=== PATIENT | male | born 1960 | race American Indian/Alaskan Native ===

== ENCOUNTER 2018-10-14 13:05 | Inpatient (IN) | payer MEDICARE, OTHER ==
--- NOTE | 2018-10-14 13:46 | C.PDOC ---
History Of Present Illness 57 year old male with PMHx of depression and anxiety presents to the ED requesting detoxification from alcohol. Reports his last alcoholic drink was yesterday. States he was recently at [facility] and at [facility] for same presentation but reports they do not have a detox program. Denies any nausea, vomiting, abd pain, chest pain, sob, fever, chills, cough, urinary symptoms, SI/HI, auditory or visual hallucinations. Time Seen by Provider: 10/14/18 13:28 Chief Complaint (Nursing): Substance Abuse History Per: Patient History/Exam Limitations: no limitations Onset/Duration Of Symptoms: Days Current Symptoms Are (Timing): Still Present Suicide/Self Injury Attempted (Context): None Modifying Factor(s): Alcohol Associated Symptoms: denies: Suicidal Thoughts, Suicidal Plan Past Medical History Reviewed: Historical Data, Nursing Documentation, Vital Signs Vital Signs: Last Vital Signs Temp 98.6 F 10/14/18 13:12 Pulse 105 H 10/14/18 13:12 Resp 20 10/14/18 13:12 BP 136/81 10/14/18 13:12 Pulse Ox 96 10/14/18 13:12 - Medical History PMH: Anxiety, Asthma, Bipolar Disorder, HTN Surgical History: No Surg Hx Family History: States: No Known Family Hx - Social History Hx Alcohol Use: Yes Hx Substance Use: No - Immunization History Hx Tetanus Toxoid Vaccination: Yes Hx Influenza Vaccination: Yes Hx Pneumococcal Vaccination: Yes Review Of Systems Except As Marked, All Systems Reviewed And Found Negative. Constitutional: Negative for: Fever, Chills Cardiovascular: Negative for: Chest Pain Respiratory: Negative for: Shortness of Breath Gastrointestinal: Negative for: Nausea, Vomiting, Abdominal Pain, Diarrhea Genitourinary: Negative for: Dysuria, Hematuria Psych: Negative for: Suicidal ideation Physical Exam - Physical Exam Appears: Non-toxic, No Acute Distress Skin: Warm, Dry Head: Atraumatic, Normacephalic Eye(s): bilateral: PERRL, EOMI Oral Mucosa: Moist Neck: Supple Chest: Symmetrical Cardiovascular: Rhythm Regular Respiratory: No Rales, No Rhonchi, No Wheezing, Other (Good air movement, Lungs CTA bilaterally) Gastrointestinal/Abdominal: Soft, No Tenderness, No Guarding, No Rebound Extremity: Bilateral: Atraumatic, Normal Color And Temperature, Normal ROM Pulses: Left Dorsalis Pedis: Normal, Right Dorsalis Pedis: Normal Neurological/Psych: Oriented x3, Normal Speech Gait: Steady ED Course And Treatment - Laboratory Results Result Diagrams: 10/14/18 14:57 10/14/18 14:57 O2 Sat by Pulse Oximetry: 96 (RA) Pulse Ox Interpretation: Normal Medical Decision Making Medical Decision Making: Impression: 57 year old male with PMHx of depression and anxiety presents to the ED requesting detoxification from alcohol. Initial Plan: Labs ordered with drug screen and UA Patient medically cleared. 16:[address] Cruz accepts patient full admission to [facility] for alcohol abuse. Disposition - Disposition Disposition: HOSPITALIZED Disposition Time: 16:25 Condition: STABLE - Clinical Impression Clinical Impression: Alcohol abuse - Scribe Statement The provider has reviewed the documentation as recorded by the Scribe Malia Pierre All medical record entries made by the Scribe were at my direction and personally dictated by me. I have reviewed the chart and agree that the record accurately reflects my personal performance of the history, physical exam, medical decision making, and the department course for this patient. I have also personally directed, reviewed, and agree with the discharge instructions and disposition.
[2018-10-14 15:10] LABS: BASO % 0.6 % (0.0-2.0); EOS # 0.1 K/uL (0.0-0.7); EOS % 2.5 % (0.0-4.0); HEMOGLOBIN 12.6 g/dL (12.0-18.0); LYMPH # 1.7 K/uL (1.0-4.3); LYMPH % 38.4 % (20.0-40.0); MEAN CELL VOLUME 92.6 fL (80.0-94.0); MEAN CORPUSCULAR HGB CONC 33.5 g/dL (33.0-37.0); MEAN PLATELET VOLUME 9.9 fL (7.2-11.7); MONO # 0.8 K/uL (0.0-0.8); MONO % 17.4 % (0.0-10.0); NEUT # 1.8 K/uL (1.8-7.0); NEUT % 41.1 % (50.0-75.0); RBC 4.05 Mil/uL (4.40-5.90); RED CELL DISTRIBUTION WIDTH 17.9 % (11.5-14.5); WHITE BLOOD COUNT 4.4 K/uL (4.8-10.8)
[2018-10-14 15:13] LABS: URINE BILIRUBIN NEGATIVE (NEGATIVE); URINE BLOOD NEGATIVE (NEGATIVE); URINE CLARITY Clear (Clear); URINE COLOR Yellow (YELLOW); URINE GLUCOSE (UA) NORMAL (Normal); URINE LEUKOCYTE ESTERASE NEG Leu/uL (Negative); URINE PROTEIN NEGATIVE (NEGATIVE); URINE UROBILINOGEN NORMAL mg/dL (0.2-1.0)
[2018-10-14 15:22] LABS: ALB/GLOB RATIO 1.2 (1.0-2.1); ALBUMIN 4.2 g/dL (3.5-5.0); ALT/SGPT 26 U/L (21-72); AST/SGOT 29 U/L (17-59); BLOOD UREA NITROGEN 14 mg/dL (9-20); CALCIUM 9.6 mg/dl (8.6-10.4); GFR NON-AFRICAN AMERICAN > 60
[2018-10-14 15:26] LABS: BARBITURATES, UR NEGATIVE (NEGATIVE); OPIATES, UR NEGATIVE (NEGATIVE); PHENCYCLIDINE, UR NEGATIVE (NEGATIVE)
[2018-10-14 15:29] LABS: BENZODIAZEPINES, UR POSITIVE (NEGATIVE)
--- NOTE | 2018-10-14 16:42 | PCM.BM ---
<Cynthia Flores - Last Filed: 10/14/18 16:41> Treatment Plan Problems - Problems identified on initial assessmt Anxiety Related to Substance Use Date Initiated: 10/14/18 Time Initiated: 16:41 Assessment reference: NA Status: Active Defensive Coping Date Initiated: 10/14/18 Time Initiated: 16:42 Assessment reference: NA Status: Active Knowledge Deficit : Alcohol Use Date Initiated: 10/14/18 Time Initiated: 16:42 Assessment reference: NA Status: Active Treatment assets and liabiliti Patient Assests: ADL independent, negotiates basic needs, cognitively intact Patient Liabilities: substance abuse - Milieu Protocol Maintain good personal hygiene: daily Encourage regular showers, daily Remind patient to perform daily oral care, daily Assist patient to perform ADL's Conduct patient checks and document Observation sheet: Q15 minutes Maintain personal safety: every shift Educate patient to report safety concerns to staff, every shift Monitor environment for contraband/sharps Medication safety: Monitor for expected outcome, potential side effects: every shift, Assess barriers to learning: every shift, Assess readiness for medication education: every shift <Rolando Torres - Last Filed: 10/15/18 12:54> - Diagnosis (1) Alcohol abuse Status: Acute Interventions: 10/15/18 12:54 * Assess 7x/week regarding severity of withdrawal * Educate regarding risks, benefits, side effects and alternatives of medications * Use Motivational Interviewing for abstinence * Use CBT for relapse prevention * Medication management for withdrawal symptoms * Encourage medication assisted treatment *
[2018-10-15] MEDS ORDERED: Albuterol HFA 90 mcg/actuation (8 g) INH SCH (10:30)
[2018-10-15] MEDS ORDERED: Albuterol 0.083% Inhal Sol (2.5 mg/3 mL) UD INH PRN (11:05)
[2018-10-15] MEDS: Pantoprazole 40 mg EC Tab PO SCH (11:11)
[2018-10-15] MEDS: Fluticasone Nasal 50 mcg/Spray NS SCH (12:02)
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
[2018-10-16] MEDS: Fluticasone Nasal 50 mcg/Spray NS SCH (09:30)
[2018-10-16] MEDS: Pantoprazole 40 mg EC Tab PO SCH (09:31)
--- NOTE | 2018-10-16 11:52 | PCM.PYCHPN ---
Psychiatric Progress Note - Psychiatric Progress Note Patient seen today, length of contact: 16 min Patient Chief Complaint: "I am feeling better" Problems Identified/Issues Discussed: The pt is seen, chart reviewed, case discussed with staff. The pt is compliant with medications and reports no side-effects. Symptoms are improving but needs more time to stabilize. Pt attends groups and activities. Support given, psycho-education provided. After care discussed. Medication Change: Yes (detox changes daily) Medical Record Reviewed: Yes Mental Status Examination - Cognitive Function Orientation: Person, Place, Situation, Time Memory: Intact Attention: WNL Concentration: Poor Association: WNL Fund of Knowledge: WNL - Mood Mood: Depressed, Anxious - Affect Affect: Constricted - Speech Speech: Appropriate - Formal Thought Process Formal Thought Process: No Impairment - Suicidal Ideation Suicidal Ideation: No - Homicidal Ideation Homicidal Ideation: No Goal/Treatment Plan - Goal/Treatment Plan Need for Continued Stay: Discharge may exacerbated symptoms, Severe functional impairment Progress Toward Problem(s) and Goals/Treatment Plan: Taper with librium Gabapentin for augmentation Seroquel for mood sxs Keppra for seizures As needed medications All risks, benefits and alternatives of the meds discussed, and the pt agreed and understood. Attend groups and activities Supportive therapy and psychoeducation NM for abstinence CBT for relapse prevention Encourage MAT Refer to rehab or IOP, and self-help groups Teach healthy lifestyle methods, i.e. diet, exercise, meditation Smoking cessation with NM Nicotine patch if needed
[2018-10-17] MEDS: Pantoprazole 40 mg EC Tab PO SCH (09:28)
[2018-10-17] MEDS: Fluticasone Nasal 50 mcg/Spray NS SCH (09:29)
--- NOTE | 2018-10-17 13:40 | PCM.PYCHPN ---
Psychiatric Progress Note - Psychiatric Progress Note Patient seen today, length of contact: 15 min Patient Chief Complaint: "I am so so" Problems Identified/Issues Discussed: The pt is seen, chart reviewed, case discussed with staff. Support and psychoeducation given, CBT and TX used briefly Pt is improving slowly and needs more time, still has ongoing symptoms. No SEs from medications, risks discussed. After care discussed Medication Change: Yes (detox changes daily) Medical Record Reviewed: Yes Mental Status Examination - Cognitive Function Orientation: Person, Place, Situation, Time Memory: Intact Attention: WNL Concentration: Poor Association: WNL Fund of Knowledge: WNL - Mood Mood: Depressed, Anxious - Affect Affect: Constricted - Speech Speech: Appropriate - Formal Thought Process Formal Thought Process: No Impairment - Suicidal Ideation Suicidal Ideation: No - Homicidal Ideation Homicidal Ideation: No Goal/Treatment Plan - Goal/Treatment Plan Need for Continued Stay: Discharge may exacerbated symptoms, Severe functional impairment Progress Toward Problem(s) and Goals/Treatment Plan: Taper with librium Gabapentin for augmentation Seroquel for mood sxs Keppra for seizures As needed medications All risks, benefits and alternatives of the meds discussed, and the pt agreed and understood. Attend groups and activities Supportive therapy and psychoeducation TX for abstinence CBT for relapse prevention Encourage MAT Refer to rehab or IOP, and self-help groups Teach healthy lifestyle methods, i.e. diet, exercise, meditation Smoking cessation with TX Nicotine patch if needed
[2018-10-18] MEDS: Pantoprazole 40 mg EC Tab PO SCH (09:22)
[2018-10-18] MEDS: Fluticasone Nasal 50 mcg/Spray NS SCH (09:23)
--- NOTE | 2018-10-18 17:29 | PCM.PYCHPN ---
Psychiatric Progress Note - Psychiatric Progress Note Patient seen today, length of contact: 15 min Patient Chief Complaint: "I am OK" Problems Identified/Issues Discussed: The pt is seen again, chart reviewed, and case is discussed with the team. The pt denies any side-effects from meds. Attends activities and groups, brief individual therapy provided Not ready for discharge due to ongoing symptoms and high relapse risk. After care discussed again. Medication Change: Yes (detox changes daily) Medical Record Reviewed: Yes Mental Status Examination - Cognitive Function Orientation: Person, Place, Situation, Time Memory: Intact Attention: WNL Concentration: Poor Association: WNL Fund of Knowledge: WNL - Mood Mood: Depressed, Anxious - Affect Affect: Constricted - Speech Speech: Appropriate - Formal Thought Process Formal Thought Process: No Impairment - Suicidal Ideation Suicidal Ideation: No - Homicidal Ideation Homicidal Ideation: No Goal/Treatment Plan - Goal/Treatment Plan Need for Continued Stay: Discharge may exacerbated symptoms, Severe functional impairment Progress Toward Problem(s) and Goals/Treatment Plan: Taper with librium Gabapentin for augmentation Seroquel for mood sxs Keppra for seizures As needed medications All risks, benefits and alternatives of the meds discussed, and the pt agreed and understood. Attend groups and activities Supportive therapy and psychoeducation HI for abstinence CBT for relapse prevention Encourage MAT Refer to rehab or IOP, and self-help groups Teach healthy lifestyle methods, i.e. diet, exercise, meditation Smoking cessation with HI Nicotine patch if needed
[2018-10-19 06:34] VITALS: O2SAT 96
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
[2018-10-19] MEDS: Pantoprazole 40 mg EC Tab PO SCH (09:30)
[2018-10-19] MEDS: Fluticasone Nasal 50 mcg/Spray NS SCH (09:32)
[2018-10-19 09:34] VITALS: BP 146/97
[2018-10-19 10:38] VITALS: PULSE 91; RESP 18; TEMP 97.8
== END 2018-10-19 10:50 | disposition home or self-care (01) | DRG 897 ==
LOC: C.ER 13:05 → C.7D 16:26
PROVIDERS: ADMIT Psychiatry & Neurology Psychiatry; ATTEND Psychiatry & Neurology Psychiatry
DX: F10.239 Alcohol dependence with withdrawal, unspecified (principal); Y90.6 Blood alcohol level of 120-199 mg/100 ml; F17.210 Nicotine dependence, cigarettes, uncomplicated; G40.909 Epilepsy, unspecified, not intractable, without status epilepticus; F43.10 Post-traumatic stress disorder, unspecified; I10 Essential (primary) hypertension; J45.909 Unspecified asthma, uncomplicated; Z59.0 Homelessness; F31.9 Bipolar disorder, unspecified